=== PATIENT | male | born 1970 | race Caucasian/White ===

== ENCOUNTER → 2017-10-15 | Outpatient (CLI) | payer MEDICARE, MEDICAID ==
[2017-04-22 17:12] VITALS: BMI 27.6
[~2017-10-15] MED LIST: ACE500 PO; ALB6.7R INH; ALBU8HFA INH; ALBUDR INH; CELLC500PT PO; CEP500 PO; CHOL10005 PO; CIP500 PO; CIT20 PO; CYC10 PO; CYCL10TA29 PO; DOC100 PO; DUONEB INH; ENOX40DI9 SQ; FURO-45 PO; FURO-47 PO; GUALA600 PO; HYDR-3097 PO; HYDR-4309 PO; IBUP800T37 PO; LAC100PT PO; LACO150T4 PO; LAMO100T56 PO; LAMO200T46 PO; LEVE100047 PO; LEVE500T88 PO; LEVE750T62 PO; LEVO750T25 PO; LISI20TA29 PO; LOR05 PO; LOR5 PO; LOR5/325 PO; LORA-1455 PO; METH-632 PO; METH1TAB65 PO; ONDA4TAB PO; ONDA4VIA30 IJ; OXYC-1 PO; OXYC-717 PO; OXYC-856 PO; OXYC-865 PO; OXYC5CAP21 PO; PANT40TA65 PO; PER PO; PHEN100 PO; PRE20 PO; PRED20TA6 PO; PROAIRPT IH; PROM-110 PO; RIVA20TA PO; TAM4 PO; TOBOO OD; TOPI-120 PO; TOPI-121 PO; TOPI-28 PO; TRAM-420 PO; TRIA15OI20 TP; WAR2 PO; WAR75 PO; WARF-1 PO; WARF4TAB47 PO
[2017-10-15 12:11] LABS: PLATELET COUNT, AUTOMATED 189 K/uL (150-450)
== END ==
LOC: LAB 11:32
PROVIDERS: ATTEND Internal Medicine Nephrology
DX: M32.14 Glomerular disease in systemic lupus erythematosus (principal)
CPT/HCPCS: 36415; 82040; 82310; 82374; 82435; 82565; 82570; 82947; 84100; 84132; 84156; 84295; 84520; 85025

== ENCOUNTER → 2017-10-22 | Outpatient (CLI) | payer MEDICARE, MEDICAID ==
[2017-04-22 17:12] VITALS: BMI 27.6
--- NOTE | 2017-10-22 17:07 | RADIOLOGY IMAGING REPORT ---
[place] [facility] [place] Clarissa Head : 1970 MR: [id number] V: [id number] EXAM DATE: ORDERING PHYSICIAN: CLARISSA HARVEY TECHNOLOGIST: [place] [facility] [place] Clarissa Head : 1970 Visit/Account:[id number] Date of Sevice: 10/22/2017 Chest with lateral, two views. HISTORY: Cough for two days. COMPARISON: 02/07/2017. A pulse generator projects on the left mid chest. An electrode tip projects on the base of the left neck. The heart size is upper limits of normal. The mediastinum is otherwise unremarkable. Pulmona ry vessels are normal. Mild streaky densities are present in the right midlung and right lung base. The lateral costophrenic sulci are minimally blunted. Several mild chronic appearing wedge deformit ies and mild degenerative changes are present in the spine. Metal anchors are present in the left sh oulder. IMPRESSION: Mild bilateral pleural parenchymal scarring. Otherwise no evidence of acute cardiopulmonary disease. Report Dictated By: Bobby Cintron MD at 10/22/2017 4:59 PM Report E-Signed By: Bobby Cintron MD at 10/22/2017 5:01 PM WSN:[email or web address]
== END ==
LOC: RAD 16:08
PROVIDERS: ATTEND Internal Medicine Nephrology
DX: R91.8 Other nonspecific abnormal finding of lung field (principal)
CPT/HCPCS: 71046

== ENCOUNTER → 2017-12-03 | Outpatient (REF) | payer MEDICARE, MEDICAID ==
[2017-04-22 17:12] VITALS: BMI 27.6
== END ==
LOC: ZZSENDIN 16:38
PROVIDERS: ATTEND Physician Assistant
DX: M32.15 Tubulo-interstitial nephropathy in systemic lupus erythematosus (principal)
CPT/HCPCS: 82570; 84156

== ENCOUNTER → 2017-12-19 | Outpatient (CLI) | payer MEDICARE, MEDICAID ==
[2017-04-22 17:12] VITALS: BMI 27.6
[2017-12-19 11:40] LABS: PLATELET COUNT, AUTOMATED 196 K/uL (150-450)
== END ==
LOC: LAB 11:10
PROVIDERS: ATTEND Internal Medicine Nephrology
DX: M32.14 Glomerular disease in systemic lupus erythematosus (principal); E87.2 Acidosis; N18.3 Chronic kidney disease, stage 3 (moderate); D63.1 Anemia in chronic kidney disease
CPT/HCPCS: 36415; 82040; 82310; 82374; 82435; 82565; 82570; 82947; 84100; 84132; 84156; 84295; 84520; 85025

== ENCOUNTER → 2018-01-30 | Outpatient (CLI) | payer MEDICARE, MEDICAID ==
[2017-04-22 17:12] VITALS: BMI 27.6
[2018-01-30 16:53] LABS: PLATELET COUNT, AUTOMATED 175 K/uL (150-450)
== END ==
LOC: LAB 16:29
PROVIDERS: ATTEND Internal Medicine Nephrology
DX: M32.14 Glomerular disease in systemic lupus erythematosus (principal); E87.2 Acidosis; N18.3 Chronic kidney disease, stage 3 (moderate); D63.1 Anemia in chronic kidney disease
CPT/HCPCS: 36415; 82040; 82310; 82374; 82435; 82565; 82570; 82947; 84100; 84132; 84156; 84295; 84520; 85025

== ENCOUNTER 2018-02-12 14:26 | Emergency (ER) | payer MEDICARE, MEDICAID ==
[2017-04-22 17:12] VITALS: Wt 109.5 kg
[2018-02-12 14:30] VITALS: BP 110/74
[2018-02-12] MEDS ORDERED: PRED-416 PO (14:35)
[2018-02-12] MEDS ORDERED: CYCL10TA29 PO (14:54)
--- NOTE | 2018-02-12 14:55 | ER Report ---
History and Physical Time Seen By MD: 14:34 Hx. of Stated Complaint: PT REPORTS STABBING PAIN IN LOWER BACK, STATES HE IS HAVING A LUPUS FLARE AND "CAN'T TAKE ANYTHING FOR PAIN AT HOME, BUT IV MORPHINE IS PROBABLY OK" HPI/ROS CHIEF COMPLAINT: Back pain HISTORY OF PRESENT ILLNESS: Patient is a 47-year-old male who presents to ED with complaint of lower back pain that started this morning when he tried to get out of bed. He states that he was getting out of bed and notices twinge in his back. He states that he has pain particularly with standing straight and bending over. He states that sitting he feels fine. Patient denies any numbness or tingling into his legs. He denies any pain radiating into his legs. Patient has not noted any urinary or bowel incontinence. He states he has had issues with his back in the past. He states that he was on pain medications but was taken off of this due to his kidney function worsening from his lupus nephritis. He states it does feel like his back tightens up at times. REVIEW OF SYSTEMS: Constitutional: No fever, no chills. Cardiovascular: No chest pain, no palpitations. Respiratory: No cough, no shortness of breath. Gastrointestinal: No abdominal pain, no vomiting. Genitourinary: No hematuria. Musculoskeletal: See history of present illness. Skin: No rashes. Neurological: No headache. Allergies: Coded Allergies: No Known Drug Allergies (Unverified , 02/12/18) Home Meds Active Scripts Pantoprazole Sodium (PANTOPRAZOLE SODIUM) 40 Mg Tablet.dr, 1 TAB PO QAM, #60 TAB 6 Refills Take 1 tablet every morning 1/2 hour before eating Prov:JENNY ART MD 04/23/17 Ondansetron (ZOFRAN ODT) 4 Mg Tab.rapdis, 4 MG PO Q6-8H Y for NAUSEA, #20 TAB.ALICIA Prov:RODRIGO MORALES DO 12/25/16 Rivaroxaban 20 Mg (XARELTO 20 MG) 20 Mg Tablet, 20 MG PO DAILY Y for anticoagulation, #30 TAB 6 Refills take 1 tab orally every day for anticoagulation. Prov:NORMAN SORTO SET UP WORKER-BC, ONC 11/17/15 Reported Medications Prednisone (PREDNISONE) 5 Mg Tab.ds.pk, 5 MG PO QDAY 02/12/18 Mycophenolate Mofetil (CELLCEPT) 500 Mg Tab, 3000 MG PO QDAY, TAB 04/21/17 Furosemide (FUROSEMIDE) 40 Mg Tablet, 1 TAB PO BID, TAB 04/21/17 Triamcinolone Acetonide 0.1% Oint 15 Gm Tube (TRIAMCINOLONE ACETONIDE 0.1% 15 GM TUBE) 15 Gm Oint...g., 1 BIN TP BID, TUBE 12/25/16 Lisinopril (LISINOPRIL) 20 Mg Tablet, 20 MG PO QDAY, TAB 12/25/16 Cholecalciferol (Vitamin D3) (VITAMIN D3) 1,000 Unit Tablet, 2000 UNIT PO QDAY, TAB 12/25/16 Topiramate (TOPAMAX) 100 Mg Tablet, 200 MG PO QHS 02/20/16 Topiramate (TOPIRAMATE) 100 Mg Tablet, 100 MG PO QAM, #90 02/20/16 Levetiracetam (Keppra) 1,000 Mg Tablet, 3500 MG PO DAILY, 0 Refills TAKES 1500MG IN AM AND 2000MG HS. 03/27/12 Lamotrigine (Lamictal) 200 Mg Tablet, 700 MG PO DAILY, 0 Refills TAKES 300MG IN AM AND 400MG AT NIGHT. 05/01/11 Discontinued Reported Medications Prednisone (PREDNISONE) 20 Mg Tablet, 20 MG PO QDAY, TAB 04/21/17 Reviewed Nurses Notes: Yes Old Medical Records Reviewed: Yes Hx Smoking: No Smoking Status: Never Smoker Exposure to Second Hand Smoke?: Yes Hx Substance Use Disorder: No Hx Alcohol Use: No Constitutional Vital Sign - Last 24 Hours 02/12/18 14:30 Temp 98.0 Pulse 80 Resp 16 B/P (MAP) 110/74 Pulse Ox 93 Physical Exam General Appearance: The patient is alert, has no immediate need for airway protection and no signs of toxicity. Patient appears to be in no acute distress.t.] Respiratory: There are no retractions, lungs are clear to auscultation. Cardiovascular: Regular rate and rhythm. Gastrointestinal: Abdomen is soft and non tender, no masses, bowel sounds normal. Skin: Warm and dry, no rashes. Musculoskeletal: Neck is supple non tender. There is bilateral paravertebral lumbar tenderness particularly in the L4/L5 region. No rash, ecchymosis, swelling identified. Patient has full range of motion with some pain. Bilateral straight leg raise test is normal. Patellar reflexes are 2+ bilaterally. DIFFERENTIAL DIAGNOSIS: After history and physical exam differential diagnosis was considered for back pain including but not limited to muscular pain, herniated disc, spine fracture, intra-abdominal causes and urinary tract infection. Medical Decision Making ED Course/Re-evaluation ED Course Discussed with patient that he should not be taking any NSAIDs due to his current kidney function and history of GI bleeds. However, he may take Tylenol and will prescribe him some muscle relaxer to help with his pain. Decision to Disposition Date: February 12, 2018 Decision to Disposition Time: 14:52 Depart Departure Latest Vital Signs Vital Signs Date Time Temp Pulse Resp B/P (MAP) Pulse Ox O2 Delivery O2 Flow Rate FiO2 02/12/18 14:30 98.0 80 16 110/74 93 Impression: Primary Impression: Low back pain Condition: Improved Disposition: HOME OR SELF-CARE Referrals: FERNANDO ALEXANDRA PA-C (PCP) New Scripts Cyclobenzaprine Hcl (CYCLOBENZAPRINE HCL) 10 Mg Tablet 5 MG PO TID Y for prn, #12 TAB Prov: ERYN SHEPPARD PA-C 02/12/18 Patient Instructions: Acute Low Back Pain (ED), Back Pain (ED) Additional Instructions: Rest, ice, heat. May take Tylenol for pain relief as needed. Follow-up with her primary care provider in 2-3 days. If having any worsening or concerning symptoms may return to the emergency department. Problem Qualifiers Primary Impression: Low back pain Chronicity: acute Back pain laterality: unspecified Sciatica presence: without sciatica Qualified Codes: M54.5 - Low back pain ERYN SHEPPARD PA-C February 12, 2018 14:54
== END 2018-02-12 15:04 | disposition home or self-care (01) ==
LOC: ER 14:36
DX: M54.5 Low back pain (principal)
CPT/HCPCS: 99282

== ENCOUNTER → 2018-03-02 | Outpatient (CLI) | payer MEDICARE, MEDICAID ==
[2017-04-22 17:12] VITALS: BMI 27.6
[~2018-03-02] MED LIST changes: +PRED-416 PO
[2018-03-02 11:57] LABS: PLATELET COUNT, AUTOMATED 188 K/uL (150-450)
== END ==
LOC: LAB 11:28
PROVIDERS: ATTEND Internal Medicine Nephrology
DX: M32.14 Glomerular disease in systemic lupus erythematosus (principal); E87.2 Acidosis; N18.3 Chronic kidney disease, stage 3 (moderate); D63.1 Anemia in chronic kidney disease
CPT/HCPCS: 36415; 82040; 82310; 82374; 82435; 82565; 82570; 82947; 84100; 84132; 84156; 84295; 84520; 85025

== ENCOUNTER → 2018-03-25 | Outpatient (CLI) | payer MEDICARE, MEDICAID ==
[2017-04-22 17:12] VITALS: BMI 27.6
[2018-03-25 14:09] LABS: PLATELET COUNT, AUTOMATED 226 K/uL (150-450)
--- NOTE | 2018-03-25 15:13 | RADIOLOGY IMAGING REPORT ---
FACILITY: [facility] PATIENT NAME: Tyree Head : 1970 MR: [id number] V: [id number] EXAM DATE: ORDERING PHYSICIAN: TYREE HARVEY TECHNOLOGIST: Location: [facility] [place] Patient: Tyree Head : 1970 Visit/Account:[id number] Date of Sevice: 03/25/2018 Exam type: CHEST PA AND LAT History: Lupus, shortness of breath with exertion Comparison: October 22, 2017 Findings: There is a generator pack ejecting over the left mid chest. Electrode tip projects over the left-prabhu ed the neck. Mild pleural parenchymal scarring in the lung bases appears unchanged. There is no marv dence of focal infiltrates, pleural effusions or pulmonary edema. No evidence of a pneumothorax or p neumomediastinum.. Cardiac silhouette is normal in size. There are mild degenerative changes in the spine unchanged. IMPRESSION: 1. Mild pleural parenchyma scarring the lung bases although no evidence of acute pulmonary consolida tion Report Dictated By: Yane English MD at 03/25/2018 3:07 PM Report E-Signed By: Yane English MD at 03/25/2018 3:09 PM WSN:[email or web address]
== END ==
LOC: RAD 13:38
PROVIDERS: ATTEND Internal Medicine Nephrology
DX: R91.8 Other nonspecific abnormal finding of lung field (principal)
CPT/HCPCS: 36415; 71046; 82040; 82247; 82310; 82374; 82435; 82565; 82570; 82947; 84075; 84132; 84155; 84156; 84295; 84450; 84460; 84520; 85025; 86160; 86225

== ENCOUNTER → 2018-04-03 | Outpatient (CLI) | payer MEDICARE, MEDICAID ==
[2017-04-22 17:12] VITALS: BMI 27.6
--- NOTE | 2018-04-03 15:54 | RADIOLOGY IMAGING REPORT ---
FACILITY: [facility] PATIENT NAME: Clarissa Head : 1970 MR: [id number] V: [id number] EXAM DATE: ORDERING PHYSICIAN: CLARISSA HARVEY TECHNOLOGIST: Location: [facility] [place] Patient: Clarissa Head : 1970 Visit/Account:[id number] Date of Sevice: 04/03/2018 Exam type: VENOUS DOPP LOW RIGHT EXTREMIT History: Right leg swelling Comparison: January 11, 2017. Findings: Right lower extremity veins were imaged including the right common femoral vein greater saphenous vei n superficial femoral vein popliteal vein posterior tibial vein peroneal vein anterior tibial vein re vealing no evidence intraluminal thrombi. The veins were compressible and demonstrated augmentation. The technologist notation there is redness and swelling along the medial aspect of the right calf w ith open sores IMPRESSION: 1. No sonographic evidence of DVT involving the right lower extremity veins Report Dictated By: Yane English MD at 04/03/2018 3:48 PM Report E-Signed By: Yane English MD at 04/03/2018 3:49 PM WSN:[email or web address]
== END ==
LOC: US 02:20
PROVIDERS: ATTEND Internal Medicine Nephrology
DX: M32.14 Glomerular disease in systemic lupus erythematosus (principal); N18.3 Chronic kidney disease, stage 3 (moderate); D68.59 Other primary thrombophilia
CPT/HCPCS: 93306

== ENCOUNTER → 2018-06-02 | Outpatient (CLI) | payer MEDICARE ==
[2017-04-22 17:12] VITALS: BMI 27.6
[2018-06-02 10:31] LABS: PLATELET COUNT, AUTOMATED 182 K/uL (150-450)
== END ==
LOC: LAB 10:14
PROVIDERS: ATTEND Internal Medicine Nephrology
DX: M32.14 Glomerular disease in systemic lupus erythematosus (principal); E87.2 Acidosis; N18.3 Chronic kidney disease, stage 3 (moderate); D63.1 Anemia in chronic kidney disease
CPT/HCPCS: 36415; 82040; 82310; 82374; 82435; 82565; 82570; 82947; 84100; 84132; 84156; 84295; 84520; 85025

== ENCOUNTER → 2018-07-07 | Outpatient (CLI) | payer MEDICARE ==
[2017-04-22 17:12] VITALS: BMI 27.6
[2018-07-07 09:46] LABS: PLATELET COUNT, AUTOMATED 201 K/uL (150-450)
== END ==
LOC: LAB 09:19
PROVIDERS: ATTEND Internal Medicine Nephrology
DX: M32.14 Glomerular disease in systemic lupus erythematosus (principal); E87.2 Acidosis; N18.3 Chronic kidney disease, stage 3 (moderate); D63.1 Anemia in chronic kidney disease
CPT/HCPCS: 36415; 82040; 82310; 82374; 82435; 82565; 82570; 82947; 84100; 84132; 84156; 84295; 84520; 85025

== ENCOUNTER → 2018-09-17 | Outpatient (CLI) | payer MEDICARE ==
[2017-04-22 17:12] VITALS: BMI 27.6
[~2018-09-17] MED LIST changes: -HYDR-4309 PO; +HYDR-653 PO
[2018-09-17 12:00] LABS: PLATELET COUNT, AUTOMATED 193 K/uL (150-450)
== END ==
LOC: LAB 11:20
PROVIDERS: ATTEND Internal Medicine Nephrology
DX: M32.14 Glomerular disease in systemic lupus erythematosus (principal); E87.2 Acidosis; N18.3 Chronic kidney disease, stage 3 (moderate); D63.1 Anemia in chronic kidney disease
CPT/HCPCS: 36415; 82040; 82310; 82374; 82435; 82565; 82570; 82947; 84100; 84132; 84156; 84295; 84520; 85025

== ENCOUNTER → 2018-10-16 | Outpatient (CLI) | payer MEDICARE ==
[2017-04-22 17:12] VITALS: BMI 27.6
[2018-10-16 16:08] LABS: PLATELET COUNT, AUTOMATED 197 K/uL (150-450)
== END ==
LOC: LAB 15:48
PROVIDERS: ATTEND Internal Medicine Nephrology
DX: M32.14 Glomerular disease in systemic lupus erythematosus (principal); E87.2 Acidosis; N18.3 Chronic kidney disease, stage 3 (moderate); D63.1 Anemia in chronic kidney disease
CPT/HCPCS: 36415; 82040; 82310; 82374; 82435; 82565; 82570; 82947; 84100; 84132; 84156; 84295; 84520; 85025

== ENCOUNTER → 2019-01-06 | Outpatient (CLI) | payer MEDICARE ==
[2017-04-22 17:12] VITALS: BMI 27.6
[2019-01-06 09:40] LABS: PLATELET COUNT, AUTOMATED 168 K/uL (150-450)
== END ==
LOC: LAB 09:12
PROVIDERS: ATTEND Internal Medicine Nephrology
DX: N18.3 Chronic kidney disease, stage 3 (moderate) (principal)
CPT/HCPCS: 36415; 82040; 82310; 82374; 82435; 82565; 82570; 82947; 84100; 84132; 84156; 84295; 84520; 85025

== ENCOUNTER → 2019-02-12 | Outpatient (CLI) | payer MEDICARE ==
[2017-04-22 17:12] VITALS: BMI 27.6
[2019-02-12 09:30] LABS: PLATELET COUNT, AUTOMATED 150 K/uL (150-450)
== END ==
LOC: LAB 09:08
PROVIDERS: ATTEND Internal Medicine Nephrology
DX: N18.3 Chronic kidney disease, stage 3 (moderate) (principal)
CPT/HCPCS: 36415; 82040; 82310; 82374; 82435; 82565; 82570; 82947; 84100; 84132; 84156; 84295; 84520; 85025

== ENCOUNTER → 2019-03-25 | Outpatient (CLI) | payer MEDICARE ==
[2017-04-22 17:12] VITALS: BMI 27.6
== END ==
LOC: LAB 11:24
PROVIDERS: ATTEND Psychiatry & Neurology Neurology
DX: G40.219 Localization-related (focal) (partial) symptomatic epilepsy and epileptic syndromes with complex partial seizures, intractable, without status epilepticus (principal)
CPT/HCPCS: 36415; 80177; 80201

== ENCOUNTER → 2019-03-25 | Outpatient (CLI) | payer MEDICARE ==
[2017-04-22 17:12] VITALS: BMI 27.6
[2019-03-25 11:50] LABS: PLATELET COUNT, AUTOMATED 165 K/uL (150-450)
== END ==
LOC: LAB 11:37
PROVIDERS: ATTEND Internal Medicine Nephrology
DX: N18.3 Chronic kidney disease, stage 3 (moderate) (principal)
CPT/HCPCS: 36415; 82040; 82310; 82374; 82435; 82565; 82570; 82947; 84100; 84132; 84156; 84295; 84520; 85025

== ENCOUNTER → 2019-04-16 | Outpatient (CLI) | payer MEDICARE ==
[2017-04-22 17:12] VITALS: BMI 27.6
== END ==
LOC: LAB 10:04
PROVIDERS: ATTEND Physician Assistant
DX: R73.09 Other abnormal glucose (principal); E78.5 Hyperlipidemia, unspecified
CPT/HCPCS: 36415; 82465; 83036; 83718; 84478

== ENCOUNTER → 2019-04-16 | Outpatient (CLI) | payer MEDICARE ==
[2017-04-22 17:12] VITALS: BMI 27.6
[2019-04-16 10:58] LABS: PLATELET COUNT, AUTOMATED 143 K/uL (150-450)
== END ==
LOC: LAB 10:01
PROVIDERS: ATTEND Internal Medicine Nephrology
DX: N18.3 Chronic kidney disease, stage 3 (moderate) (principal)
CPT/HCPCS: 82040; 82310; 82374; 82435; 82565; 82570; 82947; 84100; 84132; 84156; 84295; 84520; 85025

== ENCOUNTER → 2019-05-17 | Outpatient (CLI) | payer MEDICARE ==
[2017-04-22 17:12] VITALS: BMI 27.6
[2019-05-17 10:53] LABS: PLATELET COUNT, AUTOMATED 164 K/uL (150-450)
== END ==
LOC: LAB 10:21
PROVIDERS: ATTEND Internal Medicine Nephrology
DX: N18.3 Chronic kidney disease, stage 3 (moderate) (principal)
CPT/HCPCS: 36415; 82040; 82310; 82374; 82435; 82565; 82570; 82947; 84100; 84132; 84156; 84295; 84520; 85025